=== PATIENT | male | born 1955 | race Caucasian/White ===

== ENCOUNTER → 2018-05-02 | Day surgery (SDC) | payer OTHER ==
[~2018-05-02] VITALS: Ht 182.9 cm; Wt 114.1 kg
[~2018-05-02] MED LIST: ASPIRIN E.C. 8181 MG PO; BP MED; LOPRESSOR 225 MG/TAB PO; METOPROLOL SUCC25 MG PO; MOBIC15 MG PO; PREVACID30 MG PO; PRILOSEC OTC20 MG PO; PROPRANOLOL HC120 MG PO
[2018-05-02 06:33] VITALS: TEMP 98.7
[2018-05-02 11:39] VITALS: BP 129/86; PULSE 92
== END ==
LOC: COL.ER 06:29 → SDCO 09:56
DX: T18.128A Food in esophagus causing other injury, initial encounter (principal); K22.2 Esophageal obstruction; K21.0 Gastro-esophageal reflux disease with esophagitis
CPT/HCPCS: J2060; J2250; J2405; J3010; J7030

== ENCOUNTER 2019-04-09 09:38 | Emergency (ER) | payer OTHER ==
[~2019-04-09] VITALS: Ht 182.9 cm; Wt 97.7 kg
[2019-04-09] MEDS ORDERED: PRILOSEC 20MG20 MG PO (10:25)
[2019-04-09 13:57] VITALS: TEMP 98.1
[2019-04-09 14:03] VITALS: BP 91/54; PULSE 98
== END 2019-04-09 13:58 | disposition home or self-care (01) ==
LOC: COL.ER 09:38
DX: T18.120A Food in esophagus causing compression of trachea, initial encounter (principal); I10 Essential (primary) hypertension
CPT/HCPCS: C1726; J2060; J2405; J2704; J2765; J3010; J7030

== ENCOUNTER → 2022-11-04 | Outpatient (CLI) | payer MEDICARE ==
[~2022-11-04] MED LIST changes: +PRILOSEC 20MG20 MG PO
== END ==
LOC: COL.RAD 09:30
DX: M25.551 Pain in right hip (principal); M54.50 Low back pain, unspecified
CPT/HCPCS: G0260; J3301

== ENCOUNTER 2023-07-14 09:11 | Day surgery (SDC) | payer MEDICARE ==
[~2023-07-14] VITALS: Ht 182.9 cm; Wt 108.5 kg
[2023-07-14 11:10] VITALS: BP 110/86; PULSE 101; TEMP 97.7
[2023-07-14 11:25] VITALS: BP 106/89; PULSE 103
[2023-07-14 11:40] VITALS: BP 119/90; PULSE 78
--- NOTE | 2023-07-14 12:10 | NUR ---
1110-PT TO BAY 4 PER CART FROM PROCEDURE ROOM. PT AMBULATED TO CHAIR WITHOUT DIFFICULTY. REPORT RECEIVED. CALL LIGHT WITHIN REACH. PT DENIES ANY NEEDS AT THIS TIME. 1118-PT TOLERATING JUICE WITHOUT DIFFICULTY. 1129-DR SUNSHINE AT BEDSIDE DISCUSSING FINDINGS WITH PT. 1140-PT TOLERATING MUFFIN. 1155-IV DC'D AT THIS TIME. 1200-DISCHARGE EDUCATION COMPLETED WITH PT AND HIS . VERBALIZED UNDERSTANDING OF HOME AND FOLLOW UP CARE. ALL QUESTIONS ANSWERED. DISCHARGE PAPERWORK GIVEN TO PT. PT ABLE TO DRESS SELF WITHOUT ASSISTANCE. 1210-PT OFF UNIT PER WHEELCHAIR. PT DISCHARGED TO HOME WITH PER PERSONAL VEHICLE.
[2023-07-14 13:11] VITALS: BP 131/102; PULSE 95; TEMP 98
== END 2023-07-14 12:10 | disposition home or self-care (01) ==
LOC: SDCO 09:11
DX: K22.2 Esophageal obstruction (principal); K22.89 Other specified disease of esophagus; K44.9 Diaphragmatic hernia without obstruction or gangrene; K29.30 Chronic superficial gastritis without bleeding
CPT/HCPCS: C1726; J2704; J7120

== ENCOUNTER 2024-06-03 08:45 | Emergency (ER) | payer MEDICARE ==
[~2024-06-03] VITALS: Ht 182.9 cm; Wt 109.1 kg
[2024-06-03] MEDS ORDERED: NS 1,000 ML IV ONE (09:30)
[2024-06-03] MEDS ORDERED: MOBIC15 MG PO (09:53)
[2024-06-03 09:54] LABS: BASO % 0.3 % (0.0-2.0); EOS # 0.1 K/mm3 (0.0-0.7); EOS % 1.2 % (0.0-4.0); GRAN # 7.5 K/mm3 (1.4-6.5); GRAN % 74.5 % (42.2-75.2); HEMATOCRIT 51.7 % (42.0-52.0); HEMOGLOBIN 17.9 g/dl (13.5-18.0); LYMPH # 1.8 K/mm3 (1.2-3.4); LYMPH % 17.9 % (20.0-51.0); MEAN CELL VOLUME 88 fl (80.0-100.0); MEAN CORPUSCULAR HEMOGLOBIN 30 pg (27-31); MEAN CORPUSCULAR HGB CONC 35 g/dl (33.0-37.0); MEAN PLATELET VOLUME 10.5 fl (7.4-10.4); MONO # 0.6 K/mm3 (0.1-0.6); MONO % 5.8 % (1.7-9.3); PLATELET COUNT 198 K/mm3 (130-400); RED BLOOD COUNT 5.89 M/mm3 (4.20-5.60); REDCELL DISTRIBUTION WIDTH-CV 12.3 % (11.5-14.5)
[2024-06-03 10:11] LABS: ALBUMIN 4.1 g/dL (3.4-4.8); BILIRUBIN,TOTAL 1.5 mg/dL (0.2-1.2); CALCIUM 9.1 mg/dL (8.4-10.2); POTASSIUM 4.1 mEq/L (3.5-4.5); TOTAL PROTEIN 7.1 g/dl (6.2-8.1)
[2024-06-03 10:18] LABS: TROPONIN-I 0.012 ng/mL (0.00-0.033)
[2024-06-03] MEDS ORDERED: Succinylcholine PF 200 MG/10 ML SYRINGE IV ONE (11:29)
[2024-06-03] MEDS ORDERED: Rocuronium 50 MG/5 ML Multi-Dose VIAL ONE (11:29)
[2024-06-03] MEDS ORDERED: fentaNYL 50 MCG/ML 2 ML VIAL ONE (11:29)
[2024-06-03] MEDS ORDERED: Lidocaine PF 2% (20 MG/ML) 5 ML VIAL ONE (11:29)
[2024-06-03] MEDS ORDERED: Ondansetron 4 MG/2 ML VIAL ONE (11:29)
[2024-06-03 12:56] VITALS: TEMP 98.1
[2024-06-03] MEDS ORDERED: Ketorolac 30 MG/ML VIAL IV PRN (13:00)
[2024-06-03] MEDS ORDERED: Ondansetron 4 MG/2 ML VIAL IV PRN (13:00)
[2024-06-03] MEDS ORDERED: fentaNYL 50 MCG/ML 1 ML SYRINGE/VIAL [PACU/SDC ONLY] IV PRN (13:00)
[2024-06-03] MEDS ORDERED: hydrALAZINE 20 MG/ML 1 ML VIAL IV PRN (13:00)
[2024-06-03 14:09] VITALS: BP 129/90; PULSE 90
== END 2024-06-03 14:20 | disposition home or self-care (01) ==
LOC: COL.ER 08:45
PROVIDERS: Personal Emergency Response Attendant
DX: T18.128A Food in esophagus causing other injury, initial encounter (principal); Z87.19 Personal history of other diseases of the digestive system; W44.F3XA Food entering into or through a natural orifice, initial encounter
CPT/HCPCS: J2405; J2704; J3010; J7030